=== PATIENT | female | born 1935 | race Caucasian/White ===

== ENCOUNTER 2018-10-04 13:31 | Inpatient (IN) | payer OTHER, MEDICAID, MEDICARE ==
[2018-10-04 14:06] LABS: ADD MAN DIFF? NO
[2018-10-04] MEDS: NITROGLYCERIN 2% 1 GM OINT PKT TD (14:06)
[2018-10-04] MEDS: NITROGLYCERIN (SL) 0.4 MG TAB SL (14:06)
[2018-10-04] MEDS: ASPIRIN 81 MG TAB PO (14:07)
[2018-10-04 14:10] LABS: BASOPHILS % 0.4 % (0.0-2.0); EOSINOPHILS # 0.1 10^3/ul (0.0-0.5); EOSINOPHILS % 1.2 % (0.0-7.0); HEMATOCRIT 34.6 % (37.0-47.0); HEMOGLOBIN 11.2 g/dl (12.0-16.0); LYMPHOCYTES % 31.1 % (15.0-51.0); MEAN CORPUSCULAR HEMOGLOBIN 31.9 pg (29.0-33.0); MEAN CORPUSCULAR HGB CONC 32.4 g/dl (32.0-37.0); MEAN CORPUSCULAR VOLUME 98.6 fl (82.0-101.0); MEAN PLATELET VOLUME 11.3 fl (7.4-10.4); MONOCYTE # 0.7 10^3/ul (0.3-0.9); MONOCYTES % 6.8 % (0.0-11.0); NEUTROPHIL # 5.7 10^3/ul (1.6-7.5); NEUTROPHILS % 60.2 % (39.0-77.0); PLATELET COUNT 181 10^3/UL (140-415); RED BLOOD COUNT 3.51 10^6/ul (4.20-5.40); RED CELL DISTRIBUTION WIDTH 13.4 % (11.5-14.5)
[2018-10-04 14:10] LABS: WHITE BLOOD COUNT 9.5 10^3/ul (4.8-10.8)
[2018-10-04 14:25] LABS: ANION GAP 11 (5-13); BLOOD UREA NITROGEN 52 mg/dl (7-20); CALCIUM 9.3 mg/dl (8.4-10.2); CARBON DIOXIDE 30 mmol/L (21-31); CHLORIDE 100 mmol/L (97-110); CREATININE 1.85 mg/dl (0.44-1.00); GLUCOSE 170 mg/dl (70-220); POTASSIUM 4.3 mmol/L (3.5-5.1); SODIUM 141 mmol/L (135-144)
[2018-10-04 14:38] LABS: TROPONIN-I 0.013 ng/ml (0.000-0.120)
[2018-10-04] MEDS ORDERED: ACETAMINOPHEN 325 MG TAB PO (16:00)
[2018-10-04] MEDS ORDERED: ONDANSETRON 4 MG INJ IV ×2 (16:00→16:30)
[2018-10-04] MEDS ORDERED: NITROGLYCERIN (SL) 0.4 MG TAB SL (16:30)
[2018-10-04] MEDS ORDERED: NACL 0.9% 3 ML SYG IV (16:30)
[2018-10-04] MEDS: hydrALAzine 20 MG INJ IV (16:45)
[2018-10-04] MEDS: HYDROCODONE/APAP (5/325) TAB PO (17:21)
[2018-10-04] MEDS: INSULIN ASPART [NOVOLOG] 3 ML PEN SC ×2 (18:51→21:55)
[2018-10-04 20:12] LABS: CREATINE KINASE 301 IU/L (23-200)
[2018-10-04 20:25] LABS: CK INDEX 0.8; CK-MB 2.55 ng/ml (0.0-2.4); TROPONIN-I < 0.012 ng/ml (0.000-0.120)
[2018-10-04] MEDS: DOCUSATE SODIUM 100 MG CAP PO (21:11)
[2018-10-04] MEDS: MIRTAZAPINE 15 MG TAB PO (21:11)
[2018-10-04] MEDS: ATORVASTATIN 40 MG TAB PO (21:15)
[2018-10-04] MEDS: POLYETHYLENE GLYCOL 17 GM PACKET PO (21:30)
[2018-10-04] MEDS: INSULIN GLARGINE [LANTus] (100 UNITS/ML) SYG SC (23:04)
[2018-10-05] MEDS: ACCU-CHEK XX ×2 (02:00→05:22)
[2018-10-05 02:49] LABS: CREATINE KINASE 215 IU/L (23-200)
[2018-10-05 03:02] LABS: CK INDEX 0.7; TROPONIN-I < 0.012 ng/ml (0.000-0.120)
[2018-10-05 03:07] LABS: CK-MB 1.56 ng/ml (0.0-2.4)
[2018-10-05] MEDS: INSULIN ASPART [NOVOLOG] 3 ML PEN SC ×7 (03:18→22:20)
[2018-10-05 05:47] LABS: ADD MAN DIFF? NO
[2018-10-05 05:55] LABS: BASOPHILS % 0.5 % (0.0-2.0); EOSINOPHILS # 0.1 10^3/ul (0.0-0.5); EOSINOPHILS % 1.5 % (0.0-7.0); HEMATOCRIT 32.8 % (37.0-47.0); HEMOGLOBIN 10.8 g/dl (12.0-16.0); LYMPHOCYTES # 2.5 10^3/ul (0.8-2.9); LYMPHOCYTES % 38.2 % (15.0-51.0); MEAN CORPUSCULAR HGB CONC 32.9 g/dl (32.0-37.0); MEAN CORPUSCULAR VOLUME 97.3 fl (82.0-101.0); MEAN PLATELET VOLUME 11.3 fl (7.4-10.4); MONOCYTE # 0.5 10^3/ul (0.3-0.9); MONOCYTES % 7.9 % (0.0-11.0); NEUTROPHIL # 3.4 10^3/ul (1.6-7.5); NEUTROPHILS % 51.6 % (39.0-77.0); PLATELET COUNT 170 10^3/UL (140-415); RED BLOOD COUNT 3.37 10^6/ul (4.20-5.40); RED CELL DISTRIBUTION WIDTH 13.5 % (11.5-14.5)
[2018-10-05 05:55] LABS: WHITE BLOOD COUNT 6.6 10^3/ul (4.8-10.8)
[2018-10-05] MEDS: LEVOTHYROXINE 25 MCG TAB PO (06:01)
[2018-10-05] MEDS: PANTOPRAZOLE (EC) 40 MG TAB PO (06:01)
[2018-10-05 06:33] LABS: ALANINE AMINOTRANSFERASE 24 IU/L (13-69); ALBUMIN 3.5 g/dl (3.3-4.9); ALBUMIN/GLOBULIN RATIO 1.09; ALKALINE PHOSPHATASE 67 IU/L (42-121); ANION GAP 9 (5-13); ASPARTATE AMINO TRANSFERASE 31 IU/L (15-46); BILIRUBIN,INDIRECT 0.3 mg/dl (0-1.1); BILIRUBIN,TOTAL 0.3 mg/dl (0.2-1.3); BLOOD UREA NITROGEN 60 mg/dl (7-20); CALCIUM 9.2 mg/dl (8.4-10.2); CARBON DIOXIDE 31 mmol/L (21-31); CHLORIDE 99 mmol/L (97-110); CHOL/HDL RATIO 3.4 RATIO; CHOLESTEROL 135 mg/dl (100-200); CREATININE 1.68 mg/dl (0.44-1.00); GLUCOSE 287 mg/dl (70-220); HDL CHOLESTEROL 39 mg/dl (33-92); LDL CHOLESTEROL,CALCULATED 59 mg/dl; MAGNESIUM 1.8 mg/dl (1.7-2.5); POTASSIUM 4.1 mmol/L (3.5-5.1); SODIUM 139 mmol/L (135-144); TOTAL PROTEIN 6.7 g/dl (6.1-8.1); TRIGLYCERIDES 185 mg/dl (0-149)
[2018-10-05 07:05] LABS: HEMOGLOBIN A1C 7.4 % (0-5.9)
[2018-10-05] MEDS: hydrALAzine 20 MG INJ IV ×2 (07:33→11:33)
[2018-10-05] MEDS: FUROSEMIDE 20 MG TAB PO (09:14)
[2018-10-05] MEDS: CLOPIDOGREL 75 MG TAB PO (09:14)
[2018-10-05] MEDS: ASPIRIN 81 MG TAB PO (09:14)
[2018-10-05] MEDS: FERROUS SULFATE (EC) 325 MG TAB PO (09:15)
[2018-10-05] MEDS: FOLIC ACID 1 MG TAB PO (09:15)
[2018-10-05] MEDS: DOCUSATE SODIUM 100 MG CAP PO ×2 (09:15→22:04)
[2018-10-05] MEDS: CALCITRIOL 0.25 MCG CAP PO (09:15)
[2018-10-05] MEDS: AMLODIPINE 10 MG TAB PO (11:33)
[2018-10-05] MEDS: LOSARTAN 50 MG TAB PO ×2 (11:33→22:05)
[2018-10-05] MEDS: LACTULOSE 30ML CUP PO (11:34)
[2018-10-05] MEDS: GABAPENTIN 300 MG CAP PO ×2 (12:43→22:04)
[2018-10-05] MEDS: HEPARIN 5,000 UNIT/1 ML VIAL SC ×2 (12:43→22:20)
[2018-10-05] MEDS: morphine 2 MG INJ IV (12:44)
[2018-10-05 13:03] LABS: FREE T4 (FREE THYROXINE) 1.08 ng/dl (0.85-1.93)
[2018-10-05] MEDS: POLYETHYLENE GLYCOL 17 GM PACKET PO (19:11)
[2018-10-05] MEDS: ATORVASTATIN 40 MG TAB PO (22:04)
[2018-10-05] MEDS: MIRTAZAPINE 15 MG TAB PO (22:06)
[2018-10-05] MEDS: INSULIN GLARGINE [LANTus] (100 UNITS/ML) SYG SC (22:20)
[2018-10-06] MEDS: ACCU-CHEK XX (02:00)
[2018-10-06] MEDS: LEVOTHYROXINE 25 MCG TAB PO (06:37)
[2018-10-06] MEDS: PANTOPRAZOLE (EC) 40 MG TAB PO (06:37)
[2018-10-06 07:11] LABS: CREATINE KINASE 138 IU/L (23-200)
[2018-10-06 07:11] LABS: URIC ACID 8.7 mg/dl (3.1-7.9)
[2018-10-06 07:33] LABS: ANION GAP 9 (5-13); BLOOD UREA NITROGEN 63 mg/dl (7-20); CALCIUM 8.9 mg/dl (8.4-10.2); CARBON DIOXIDE 29 mmol/L (21-31); CHLORIDE 99 mmol/L (97-110); GLUCOSE 230 mg/dl (70-220); POTASSIUM 4.6 mmol/L (3.5-5.1); SODIUM 137 mmol/L (135-144)
[2018-10-06] MEDS: INSULIN ASPART [NOVOLOG] 3 ML PEN SC ×8 (07:50→21:00)
[2018-10-06] MEDS: FUROSEMIDE 20 MG TAB PO (08:34)
[2018-10-06] MEDS: FERROUS SULFATE (EC) 325 MG TAB PO (08:34)
[2018-10-06] MEDS: CLOPIDOGREL 75 MG TAB PO (08:34)
[2018-10-06] MEDS: GABAPENTIN 300 MG CAP PO ×3 (08:34→21:00)
[2018-10-06] MEDS: AMLODIPINE 10 MG TAB PO (08:35)
[2018-10-06] MEDS: DOCUSATE SODIUM 100 MG CAP PO ×2 (08:35→20:59)
[2018-10-06] MEDS: ASPIRIN 81 MG TAB PO (08:35)
[2018-10-06] MEDS: CALCITRIOL 0.25 MCG CAP PO (08:35)
[2018-10-06] MEDS: HEPARIN 5,000 UNIT/1 ML VIAL SC ×2 (08:36→21:11)
[2018-10-06] MEDS: FOLIC ACID 1 MG TAB PO (08:36)
[2018-10-06] MEDS: LOSARTAN 50 MG TAB PO ×2 (08:49→21:00)
[2018-10-06] MEDS: ALLOPURINOL 300 MG TAB PO (13:37)
[2018-10-06] MEDS: LINAGLIPTIN 5 MG TABLET PO (13:37)
[2018-10-06] MEDS: LACTATED RINGER'S 500 ML IV (13:38)
[2018-10-06] MEDS: CALCITRIOL 1 MCG INJ IV (13:45)
[2018-10-06] MEDS: POLYETHYLENE GLYCOL 17 GM PACKET PO (13:45)
[2018-10-06] MEDS: ERGOCALCIFEROL (8000 UNITS/ML PO SYG) PO (14:11)
[2018-10-06] MEDS: NA PHOSPHATE/BIPHOS 133 ML ENEMA PR (17:43)
[2018-10-06] MEDS: ATORVASTATIN 40 MG TAB PO (21:00)
[2018-10-06] MEDS: MIRTAZAPINE 15 MG TAB PO (21:00)
[2018-10-06] MEDS: INSULIN GLARGINE [LANTus] (100 UNITS/ML) SYG SC (21:11)
[2018-10-07] MEDS: ACCU-CHEK XX (02:00)
[2018-10-07] MEDS: LEVOTHYROXINE 25 MCG TAB PO (06:23)
[2018-10-07] MEDS: PANTOPRAZOLE (EC) 40 MG TAB PO (06:23)
[2018-10-07] MEDS: INSULIN ASPART [NOVOLOG] 3 ML PEN SC ×6 (07:57→20:52)
[2018-10-07] MEDS: DOCUSATE SODIUM 100 MG CAP PO ×2 (09:33→20:57)
[2018-10-07] MEDS: AMLODIPINE 5 MG TAB PO (09:33)
[2018-10-07] MEDS: CLOPIDOGREL 75 MG TAB PO (09:33)
[2018-10-07] MEDS: LINAGLIPTIN 5 MG TABLET PO (09:34)
[2018-10-07] MEDS: FUROSEMIDE 20 MG TAB PO (09:34)
[2018-10-07] MEDS: ALLOPURINOL 300 MG TAB PO (09:34)
[2018-10-07] MEDS: FOLIC ACID 1 MG TAB PO (09:34)
[2018-10-07] MEDS: FERROUS SULFATE (EC) 325 MG TAB PO (09:35)
[2018-10-07] MEDS: GABAPENTIN 300 MG CAP PO ×3 (09:35→21:01)
[2018-10-07] MEDS: LOSARTAN 50 MG TAB PO ×2 (09:35→21:02)
[2018-10-07] MEDS: ASPIRIN 81 MG TAB PO (09:35)
[2018-10-07] MEDS: CALCITRIOL 0.25 MCG CAP PO (09:35)
[2018-10-07] MEDS: HEPARIN 5,000 UNIT/1 ML VIAL SC ×2 (09:52→20:52)
[2018-10-07] MEDS: ACETAMINOPHEN 325 MG TAB PO (13:58)
[2018-10-07] MEDS: INSULIN GLARGINE [LANTus] (100 UNITS/ML) SYG SC (20:52)
[2018-10-07] MEDS: MIRTAZAPINE 15 MG TAB PO (20:57)
[2018-10-07] MEDS: DOXAZOSIN 1 MG TAB PO (21:01)
[2018-10-08] MEDS: ACCU-CHEK XX (02:00)
[2018-10-08] MEDS: PANTOPRAZOLE (EC) 40 MG TAB PO (05:41)
[2018-10-08 07:11] LABS: ANION GAP 7 (5-13)
[2018-10-08 07:12] LABS: ALBUMIN/GLOBULIN RATIO 1.03; BILIRUBIN,TOTAL 0.3 mg/dl (0.2-1.3)
[2018-10-08 07:14] LABS: ALANINE AMINOTRANSFERASE 20 IU/L (13-69); ALBUMIN 3.3 g/dl (3.3-4.9); ALKALINE PHOSPHATASE 69 IU/L (42-121); ASPARTATE AMINO TRANSFERASE 28 IU/L (15-46); BILIRUBIN,INDIRECT 0.3 mg/dl (0-1.1); BLOOD UREA NITROGEN 57 mg/dl (7-20); CALCIUM 9.3 mg/dl (8.4-10.2); CARBON DIOXIDE 29 mmol/L (21-31); CHLORIDE 102 mmol/L (97-110); CREATININE 1.68 mg/dl (0.44-1.00); GLUCOSE 221 mg/dl (70-220); POTASSIUM 4.8 mmol/L (3.5-5.1); SODIUM 138 mmol/L (135-144); TOTAL PROTEIN 6.5 g/dl (6.1-8.1)
[2018-10-08] MEDS: LEVOTHYROXINE 25 MCG TAB PO (07:49)
[2018-10-08] MEDS: INSULIN ASPART [NOVOLOG] 3 ML PEN SC ×4 (07:51→12:37)
[2018-10-08] MEDS: CLOPIDOGREL 75 MG TAB PO (09:14)
[2018-10-08] MEDS: ALLOPURINOL 100 MG TAB PO (09:14)
[2018-10-08] MEDS: ALLOPURINOL 300 MG TAB PO (09:15)
[2018-10-08] MEDS: GABAPENTIN 300 MG CAP PO ×2 (09:15→13:43)
[2018-10-08] MEDS: LINAGLIPTIN 5 MG TABLET PO (09:16)
[2018-10-08] MEDS: FOLIC ACID 1 MG TAB PO (09:16)
[2018-10-08] MEDS: CALCITRIOL 0.25 MCG CAP PO (09:16)
[2018-10-08] MEDS: ASPIRIN 81 MG TAB PO (09:17)
[2018-10-08] MEDS: DOCUSATE SODIUM 100 MG CAP PO (09:17)
[2018-10-08] MEDS: FUROSEMIDE 20 MG TAB PO (09:17)
[2018-10-08] MEDS: LOSARTAN 25 MG TAB PO (09:17)
[2018-10-08] MEDS: FERROUS SULFATE (EC) 325 MG TAB PO (09:17)
[2018-10-08] MEDS: ACETAMINOPHEN 325 MG TAB PO (09:26)
[2018-10-08] MEDS: HEPARIN 5,000 UNIT/1 ML VIAL SC (09:58)
[2018-10-08] MEDS ORDERED: HYDROCODONE/APAP (5/325) TAB PO (12:00)
[2018-10-08] MEDS ORDERED: LOSARTAN 50 MG TAB PO (21:00)
== END 2018-10-08 16:13 | disposition home or self-care (01) | DRG 292 ==
LOC: E/R 13:31 → TEL 16:00
DX: I13.0 Hypertensive heart and chronic kidney disease with heart failure and stage 1 through stage 4 chronic kidney disease, or unspecified chronic kidney disease (principal); N17.9 Acute kidney failure, unspecified; I50.32 Chronic diastolic (congestive) heart failure; I16.1 Hypertensive emergency; N18.3 Chronic kidney disease, stage 3 (moderate); E11.8 Type 2 diabetes mellitus with unspecified complications; E11.22 Type 2 diabetes mellitus with diabetic chronic kidney disease; E11.21 Type 2 diabetes mellitus with diabetic nephropathy; E11.65 Type 2 diabetes mellitus with hyperglycemia; E86.0 Dehydration; D63.1 Anemia in chronic kidney disease; I25.10 Atherosclerotic heart disease of native coronary artery without angina pectoris; E03.9 Hypothyroidism, unspecified; Z79.4 Long term (current) use of insulin; D50.9 Iron deficiency anemia, unspecified; K21.9 Gastro-esophageal reflux disease without esophagitis; E78.5 Hyperlipidemia, unspecified; I16.0 Hypertensive urgency; M81.0 Age-related osteoporosis without current pathological fracture; E79.0 Hyperuricemia without signs of inflammatory arthritis and tophaceous disease; E66.9 Obesity, unspecified; Z68.31 Body mass index [BMI] 31.0-31.9, adult; M94.0 Chondrocostal junction syndrome [Tietze]; I20.9 Angina pectoris, unspecified
CPT/HCPCS: 36415; 70551; 71045; 72141; 76775; 80048; 80053; 80061; 82306; 82550; 82553; 82607; 82652; 82962; 83036; 83735; 84439; 84443; 84484; 84560; 85025; 93005; 93306; 97116; 97161; 97530; 99285-25; G0378